=== PATIENT | male | born 1945 | race Caucasian/White ===

== ENCOUNTER 2019-03-28 05:40 | Day surgery (SDC) | payer OTHER ==
[~2019-03-28 05:40] MED LIST: CRESTOR20 MG PO; IBERSARTAN PO; [UNRECOGNIZED DRUG - OTHER] PO
== END 2019-03-28 12:55 | disposition home or self-care (01) ==
LOC: CIR.AMB 05:40
DX: G56.01 Carpal tunnel syndrome, right upper limb (principal); R22.31 Localized swelling, mass and lump, right upper limb; M67.431 Ganglion, right wrist

== ENCOUNTER 2019-07-12 05:00 | Day surgery (SDC) | payer OTHER ==
[~2019-07-12 05:00] MED LIST changes: +ASA81 MG PO
[2019-07-12] MEDS ORDERED: PERCOCET 5-3251 EACH PO (09:54)
[2019-07-12] MEDS ORDERED: KETOROLAC TROME10 MG PO (09:55)
[2019-07-12] MEDS ORDERED: RECTICARE30 GM TOP (09:55)
[2019-07-12] MEDS ORDERED: LEVOFLOXACIN500 MG PO (09:57)
== END 2019-07-12 12:50 | disposition home or self-care (01) ==
LOC: CIR.AMB 05:00
DX: K60.1 Chronic anal fissure (principal)